=== PATIENT | female | born 1975 | race Caucasian/White ===

== ENCOUNTER 2021-01-02 06:06 | Outpatient (CLI) | payer SELFPAY ==
[~2021-01-02] VITALS: Ht 170.2 cm; Wt 72.6 kg
[2021-01-03] MEDS ORDERED: B12 INJ IM/IV (09:33)
[2021-01-03] MEDS ORDERED: PROP20TA5 PO (09:33)
[2021-01-03] MEDS ORDERED: PROZAC PO (09:33)
[2021-01-03] MEDS ORDERED: LISD70CA3 PO (09:33)
[2021-01-03] MEDS ORDERED: LEVO25CA4 PO (09:33)
[2021-01-03] MEDS ORDERED: MV-M1TAB20 PO (09:33)
[2021-01-03] MEDS ORDERED: SUMA50TA2 PO (09:33)
[2021-01-03] MEDS ORDERED: MULT-1136 PO (09:33)
[2021-01-03] MEDS ORDERED: FERR-84 PO (09:33)
[2021-01-03] MEDS ORDERED: DOCU-143 PO (09:34)
[2021-01-03] MEDS ORDERED: CETI10TA49 PO (09:35)
[2021-01-03] MEDS ORDERED: FLUT9.9S NS (09:35)
== END 2021-01-03 09:49 | disposition home or self-care (01) ==
LOC: PREOP 06:06
PROVIDERS: ATTEND Otolaryngology Otolaryngology/Facial Plastic Surgery
DX: Z01.818 Encounter for other preprocedural examination (principal)

== ENCOUNTER 2021-01-06 06:37 | Day surgery (SDC) | payer BC ==
[2021-01-06] VITALS (10 sets, daily range): BP systolic 112–128; BP diastolic 53–85
[~2021-01-06] VITALS: Ht 170.2 cm; Wt 72.6 kg
[~2021-01-06 06:37] MED LIST: B12 INJ IM/IV; CETI10TA49 PO; DOCU-143 PO; FERR-84 PO; FLUT9.9S NS; LEVO25CA4 PO; LISD70CA3 PO; MULT-1136 PO; MV-M1TAB20 PO; PROP20TA5 PO; PROZAC PO; SUMA50TA2 PO
[2021-01-06] MEDS: LACTATED RINGERS 1,000 ML IV PRN ×2 (07:00→08:27)
[2021-01-06] MEDS ORDERED: COCAINE HCL 4% 2 ML SYR ONE (07:16)
[2021-01-06] MEDS ORDERED: PHENYLEPHRINE 0.5% NASAL SPR (NEO-SYNEPHRINE) REG ONE (07:16)
[2021-01-06] MEDS ORDERED: LIDOCAINE/EPI 1%-1:100,000 (XYLOCAINE) 20ML ONE (07:16)
[2021-01-06] MEDS ORDERED: BSS 15 ML ONE (07:16)
[2021-01-06] MEDS ORDERED: MUPIROCIN 2% OINT 22 GM (BACTROBAN) TUBE ONE (07:21)
[2021-01-06] MEDS ORDERED: LIDOCAINE PF 2% 5 ML (XYLOCAINE) VIAL ONE (07:22)
[2021-01-06] MEDS ORDERED: fentaNYL INJ 100 MCG/2 ML AMP ONE (07:22)
[2021-01-06] MEDS ORDERED: MIDAZOLAM 2 MG/2 ML (VERSED) VIAL ONE (07:22)
[2021-01-06] MEDS ORDERED: ONDANSETRON 4 MG/2 ML (SDV) Z0FRAN ONE (07:22)
[2021-01-06] MEDS ORDERED: SEVOFLURANE (ULTANE) 15 ML INHAL SOLN ONE (07:22)
[2021-01-06] MEDS ORDERED: ROCURONIUM 10 MG/ML 5 ML SYRINGE IV ONE (07:22)
[2021-01-06] MEDS ORDERED: proPOfol 200 MG/20 ML (DIPRIVAN) VIAL IV ONE (07:22)
[2021-01-06] MEDS ORDERED: GLYCOPYRROLATE 0.2 MG/ML (ROBINUL) 2 ML VIAL ONE (07:28)
[2021-01-06] MEDS ORDERED: NEOSTIGMINE 3 MG/3 ML VIAL ONE (07:28)
--- NOTE | 2021-01-06 07:36 | Progress Note-Pre Operative ---
Pre-Operative Progress Note H&P Reviewed The H&P was reviewed, patient examined and no changes noted. Date Seen by Provider: January 06, 2021 Time Seen by Provider: 07:15 Date H&P Reviewed: January 06, 2021 Time H&P Reviewed: 07:15 Pre-Operative Diagnosis: Bilat Hyper of Inf Turbs, Left INtranasal Scar with obstruction ANISHA ESPINOSA MD January 06, 2021 07:36
[2021-01-06] MEDS ORDERED: ONDANSETRON 4 MG/2 ML (SDV) Z0FRAN IVP PRN (07:45)
[2021-01-06] MEDS ORDERED: morphine INJ 10 MG/ML 1ML (SYR OR VIAL) IVP ONE (07:45)
[2021-01-06] MEDS ORDERED: HYDROmorphone 2 MG/ML VIAL (DILAUDID) IV ONE (07:45)
--- NOTE | 2021-01-06 08:16 | Progress Note-Post Operative ---
Post-Operative Progess Note Surgeon (s)/Access Rep (s) Surgeon ANISHA ESPINOSA MD Access Rep n/a Pre-Operative Diagnosis Bilat Hyper of Inf Turbs, Left INtranasal Scar with obstruction Post-Operative Diagnosis same Post-Op Procedure Note Date of Procedure: January 06, 2021 Name of Procedure Performed: Bilat Partial REduction of the INf Turbinates, Excisn of Left Intranasal Scarring Description & Findings Description and Findings: n/a Anesthesia Type get Estimated Blood Loss minimal Packing none. Specimen(s) collected/removed none ANISHA ESPINOSA MD January 06, 2021 08:16
[2021-01-06] MEDS ORDERED: ACETAMINOPHEN 325 MG TABLET PO PRN (08:30)
[2021-01-06] MEDS ORDERED: D5 1/2 NS W/KCL 20 MEQ/L 1,000 ML IV SCH (08:30)
[2021-01-06] MEDS ORDERED: PROMETHAZINE INJ 25 MG/ML (PHENERGAN) AMP IVP PRN (08:30)
[2021-01-06] MEDS ORDERED: HYDROcodone/APAP 5 MG/325 MG (LORTAB) TAB PO PRN (08:30)
[2021-01-06] MEDS ORDERED: AMOX-355 PO (09:18)
[2021-01-06] MEDS ORDERED: ACHD5005 PO (09:18)
--- NOTE | 2021-01-06 11:00 | Anesthesia-General Post-Op ---
General Patient Condition Mental Status/LOC: Same as Preop Cardiovascular: Satisfactory Nausea/Vomiting: Absent Respiratory: Satisfactory Pain: Controlled Complications: Absent Post Op Complications Complications None Follow Up Care/Instructions Patient Instructions None needed. Anesthesia/Patient Condition Patient Condition Patient is doing well, no complaints, stable vital signs, no apparent adverse anesthesia problems. KIM HONEYCUTT DO January 06, 2021 11:00
== END 2021-01-06 10:30 ==
LOC: SDC 06:37
PROVIDERS: ATTEND Otolaryngology Otolaryngology/Facial Plastic Surgery
DX: J34.3 Hypertrophy of nasal turbinates (principal); R09.81 Nasal congestion; J34.89 Other specified disorders of nose and nasal sinuses; F41.9 Anxiety disorder, unspecified; J30.1 Allergic rhinitis due to pollen; J30.81 Allergic rhinitis due to animal (cat) (dog) hair and dander; Z79.899 Other long term (current) drug therapy
CPT/HCPCS: 84703; 87081